=== PATIENT | male | born 1990 | race American Indian/Alaskan Native ===

== ENCOUNTER 2019-11-28 21:40 | Emergency (ER) | payer OTHER ==
[2019-11-28 22:58] VITALS: BP 142/90
--- NOTE | 2019-11-29 00:30 | Emergency Department Report ---
Chief Complaint: Urogenital-Male Stated Complaint: STD CHECK Time Seen by Provider: 11/29/19 00:25 - HPI History of Present Illness: 28-year-old -[place] male presents to the emergency room stating that he was told by his that she has chlamydia. Patient states that he was having penile discharge but no burning or. Patient denies any fever chills no abdominal pain no diarrhea or hematuria. - Exam Vital Signs: Vital Signs 11/28/19 22:52 Temperature 98.2 F Pulse Rate 60 Respiratory 15 Rate Blood Pressure 142/90 O2 Sat by Pulse 100 Oximetry Physical Exam: Alert and oriented x3 no acute distress nontoxic in appearance Ambulatory without difficulties. MSE screening note: Focused history and physical exam performed. Due to findings the following was ordered: 28-year-old -[place] male presents to the emergency room stating that he was told by his that she has chlamydia. Patient states that he was having penile discharge but no burning or. Patient denies any fever chills no abdominal pain no diarrhea or hematuria. Recommend patient to follow-up at the health department or primary care department to have a full STD evaluation and treatment. ED Disposition for MSE Disposition: MED SCREENING EXAM-LEFT Is pt being admited?: No Does the pt Need Aspirin: No Condition: Stable Additional Instructions: Please follow-up at the health department or primary care department for full STD panel and valuation with treatment. Referrals: PRIMARY CARE, [Primary Care Provider] - 3-[address] [facility] [Outside] - 3-5 Days [facility] [Outside] - 3-5 Days [facility] [Outside] - 3-5 Days [facility] [Outside] - 3-5 Days
== END 2019-11-29 00:35 | disposition left against medical advice (07) ==
LOC: ED 21:40
DX: R36.9 Urethral discharge, unspecified (principal); Z53.21 Procedure and treatment not carried out due to patient leaving prior to being seen by health care provider